=== PATIENT | female | born 1990 | race African-American/Black ===

== ENCOUNTER 2017-05-28 15:57 | Emergency (ER) | payer MEDICAID, SELFPAY ==
[~2017-05-28] VITALS: Ht 170.2 cm; Wt 72.8 kg
[2017-05-28] MEDS ORDERED: SODIUM CHLORIDE 0.9% 1,000 ML IV ONE (16:16)
[2017-05-28] MEDS ORDERED: SODIUM CHLORIDE 0.9% 1,000ML IVBOLUS ONE (16:30)
[2017-05-28 16:35] LABS: HEMOGLOBIN 15.3 g/dL (11.7-16.4); WHITE BLOOD COUNT 11.4 x10^3/uL (3.4-10)
[2017-05-28 16:44] LABS: BLOOD UREA NITROGEN 14 mg/dL (7-18)
[2017-05-28] MEDS ORDERED: BUSP5TAB2 PO (17:59)
[2017-05-28] MEDS ORDERED: DIVA-68 PO (17:59)
[2017-05-28] MEDS ORDERED: BUPR200T2 PO (17:59)
[2017-05-28] MEDS ORDERED: ONDANSETRON 2MG/ML, 2ML ONE (18:48)
[2017-05-28] MEDS ORDERED: MORPHINE SULFATE 4 MG/ML, 1ML ONE ×2 (18:48→21:08)
[2017-05-28] MEDS: MORPHINE SULFATE 4 MG/ML, 1ML IVPush PRN ×2 (18:55→21:09)
[2017-05-28] MEDS ORDERED: ONDANSETRON 2MG/ML, 2ML IVPush ONE (19:00)
[2017-05-28] MEDS ORDERED: DIPHENHYDRAMINE 50 MG/ML, 1ML ONE (19:15)
[2017-05-28] MEDS ORDERED: OMNIPAQUE 350 MG/ML, 100ML BOTTLE ONE (19:17)
[2017-05-28] MEDS ORDERED: DIPHENHYDRAMINE 50 MG/ML, 1ML IVPush ONE (19:30)
[2017-05-28] MEDS ORDERED: KETOROLAC 30 MG/1 ML ONE (19:54)
[2017-05-28] MEDS ORDERED: KETOROLAC 30 MG/1 ML IVPush ONE (20:00)
[2017-05-28 22:13] VITALS: BP 120/75
== END 2017-05-28 22:15 | disposition home or self-care (01) ==
LOC: ED 21:54
DX: K62.5 Hemorrhage of anus and rectum (principal); N83.201 Unspecified ovarian cyst, right side; F31.9 Bipolar disorder, unspecified; F20.9 Schizophrenia, unspecified
CPT/HCPCS: 36415; 74177; 76830; 80048; 81003; 82040; 84703; 85025; 96361; 96374; 96375; 96376; 99285; J1200; J1885; J2405; J7030; Q9967

== ENCOUNTER 2017-06-03 21:43 | Emergency (ER) | payer MEDICAID ==
[~2017-06-03] VITALS: Ht 170.2 cm; Wt 72.5 kg
[~2017-06-03 21:43] MED LIST: BUPR200T2 PO; BUSP5TAB2 PO; DIVA-68 PO
[2017-06-03] MEDS ORDERED: ONDANSETRON 2MG/ML, 2ML ONE (23:00)
[2017-06-03] MEDS ORDERED: SODIUM CHLORIDE 0.9% 1,000ML IVBOLUS ONE (23:00)
[2017-06-03] MEDS ORDERED: SODIUM CHLORIDE FLUSH 10ML SYR IVF ONE (23:00)
[2017-06-03] MEDS ORDERED: ONDANSETRON 2MG/ML, 2ML IVPush ONE ×2 (23:00→23:30)
[2017-06-03 23:18] LABS: HEMATOCRIT 41.8 % (34.6-47.8); WHITE BLOOD COUNT 8.6 x10^3/uL (3.4-10)
[2017-06-03] MEDS ORDERED: MORPHINE SULFATE 4 MG/ML, 1ML ONE (23:19)
[2017-06-03] MEDS: MORPHINE SULFATE 4 MG/ML, 1ML IVPush PRN (23:21)
[2017-06-03 23:27] LABS: BLOOD UREA NITROGEN 24 mg/dL (7-18)
[2017-06-03 23:31] LABS: ASPARTATE AMINO TRANSFERASE 8 U/L (15-37)
[2017-06-04] MEDS ORDERED: MORPHINE SULFATE 4 MG/ML, 1ML ONE (00:05)
[2017-06-04] MEDS: MORPHINE SULFATE 4 MG/ML, 1ML IVPush PRN (00:07)
[2017-06-04 00:10] VITALS: BP 116/74
== END 2017-06-04 00:17 | disposition home or self-care (01) ==
LOC: ED 22:30
DX: N83.201 Unspecified ovarian cyst, right side (principal)
CPT/HCPCS: 36415; 80053; 83690; 85025; 85610; 85730; 96361; 96374; 96375; 96376; 99284; J2405; J7030

== ENCOUNTER 2018-02-03 21:39 | Emergency (ER) | payer MEDICAID ==
[~2018-02-03] VITALS: Ht 170.2 cm; Wt 79.5 kg
[~2018-02-03 21:39] MED LIST changes: +ARIP2TAB2 PO; +OXYC-302 PO; +[UNRECOGNIZED DRUG - OTHER] PO
[2018-02-03 21:50] VITALS: BP 103/72
[2018-02-03 23:07] LABS: BASOPHILS # (AUTO) 0.04 x10^3/uL (0-0.1); BASOPHILS % (AUTO) 0 % (0-1); EOSINOPHILS # (AUTO) 0.33 x10^3/uL (0-0.4); EOSINOPHILS % (AUTO) 3 % (1-7); LYMPHOCYTES # (AUTO) 3.67 x10^3/uL (1-3.4); LYMPHOCYTES % (AUTO) 37 % (22-44); MD NO; MEAN CORPUSCULAR HEMOGLOBIN 30.8 pg (27.0-34.8); MEAN CORPUSCULAR HGB CONC 33.1 g/dL (32.4-35.8); MEAN CORPUSCULAR VOLUME 93.2 fL (80-100); MEAN PLATELET VOLUME 9.4 fL (7.4-10.4); MONOCYTES # (AUTO) 1.02 x10^3/uL (0.2-0.8); MONOCYTES % (AUTO) 10 % (2-9); NEUTROPHILS # (AUTO) 4.79 x10^3/uL (1.8-6.8); NEUTROPHILS % (AUTO) 49 % (42-75); PLATELET COUNT 175 x10^3/uL (130-400); RED BLOOD COUNT 4.46 x10^6/uL (3.82-5.3); RED CELL DISTRIBUTION WIDTH 13.7 % (9.6-15.2)
[2018-02-03 23:17] LABS: HCG UR SG 1.025 (1.003-1.030); MICROSCOPIC NOT IND
[2018-02-03 23:17] LABS: ALANINE AMINOTRANSFERASE 32 U/L (12-78); ALBUMIN 3.4 g/dL (3.4-5.0); ANION GAP 5 mmol/L (5-15); CALCIUM 8.5 mg/dL (8.5-10.1); CHLORIDE 109 mmol/L (98-107); CREATININE 1.07 mg/dL (0.55-1.02)
[2018-02-03 23:22] LABS: ALKALINE PHOSPHATASE 44 U/L (45-117); BILIRUBIN,TOTAL 0.3 mg/dL (0.2-1.0); TOTAL PROTEIN 6.7 g/dL (6.4-8.2)
[2018-02-03 23:28] LABS: CULTURE INDICATED? NO
== END 2018-02-04 00:18 | disposition home or self-care (01) ==
LOC: ED 23:59
DX: R10.32 Left lower quadrant pain (principal); R10.2 Pelvic and perineal pain; G89.29 Other chronic pain; F17.200 Nicotine dependence, unspecified, uncomplicated; Z98.890 Other specified postprocedural states
CPT/HCPCS: 36415; 76830; 80053; 81003; 81025; 83690; 84703; 85025; 99285

== ENCOUNTER 2018-04-13 18:19 | Emergency (ER) | payer MEDICAID ==
[~2018-04-13] VITALS: Ht 170.2 cm; Wt 76.2 kg
[2018-04-13 18:22] VITALS: BP 118/82
== END 2018-04-13 20:03 | disposition home or self-care (01) ==
LOC: ED 19:45
DX: S83.92XA Sprain of unspecified site of left knee, initial encounter (principal); L03.116 Cellulitis of left lower limb; F17.200 Nicotine dependence, unspecified, uncomplicated; W01.198A Fall on same level from slipping, tripping and stumbling with subsequent striking against other object, initial encounter; Y93.89 Activity, other specified; Y92.009 Unspecified place in unspecified non-institutional (private) residence as the place of occurrence of the external cause; Y99.8 Other external cause status
CPT/HCPCS: 29505; 99284

== ENCOUNTER 2019-12-21 22:56 | Emergency (ER) | payer MEDICAID, OTHER ==
[~2019-12-21] VITALS: Ht 170.2 cm; Wt 79.0 kg
[~2019-12-21 22:56] MED LIST changes: +DIVA-61 PO; -DIVA-68 PO
[2019-12-21] MEDS ORDERED: ACETAMINOPHEN 325 MG TABLET PO ONE (23:30)
[2019-12-21] MEDS ORDERED: LORazepam 2 MG/ML, 1ML IVPush ONE (23:30)
[2019-12-21] MEDS ORDERED: ACETAMINOPHEN 500 MG TABLET ONE (23:41)
[2019-12-21] MEDS ORDERED: LORazepam 2 MG/ML, 1ML ONE (23:42)
[2019-12-21 23:50] LABS: BASOPHILS # (AUTO) 0.04 x10^3/uL (0-0.1); BASOPHILS % (AUTO) 1 % (0-1); EOSINOPHILS # (AUTO) 0.34 x10^3/uL (0-0.4); EOSINOPHILS % (AUTO) 4 % (1-7); LYMPHOCYTES # (AUTO) 3.38 x10^3/uL (1-3.4); LYMPHOCYTES % (AUTO) 40 % (22-44); MD NO; MEAN CORPUSCULAR HEMOGLOBIN 30.7 pg (27.0-34.8); MEAN CORPUSCULAR HGB CONC 33.7 g/dL (32.4-35.8); MEAN CORPUSCULAR VOLUME 90.9 fL (80-100); MEAN PLATELET VOLUME 8.9 fL (7.4-10.4); MONOCYTES # (AUTO) 0.88 x10^3/uL (0.2-0.8); MONOCYTES % (AUTO) 10 % (2-9); NEUTROPHILS # (AUTO) 3.86 x10^3/uL (1.8-6.8); NEUTROPHILS % (AUTO) 45 % (42-75); PLATELET COUNT 227 x10^3/uL (130-400); RED BLOOD COUNT 4.55 x10^6/uL (3.82-5.3)
[2019-12-22] LABS: ALBUMIN 3.7 g/dL (3.4-5.0); ANION GAP 5 mmol/L (5-15); CALCIUM 9.1 mg/dL (8.5-10.1); CHLORIDE 110 mmol/L (98-107); CREATININE 0.82 mg/dL (0.55-1.02)
[2019-12-22 00:04] LABS: TROPONIN I < 0.015 ng/mL (0.000-0.045)
--- NOTE | 2019-12-22 00:51 | NUR ---
pt here with many different complaints that include anxiety, cheast heaviness, abd pain, shooting pains in her legs, dehydration. pt anxious and asking for iv fluids for hydration. pt requesting an ultrasound to see her ovian cyst. pt educated on our processes here and pt encouraged to drink po fluids for hydration instead of IVF. pt provided multiple glasses of water. pt medicated for anxiety per med orders.
[2019-12-22 01:25] VITALS: BP 95/51
== END 2019-12-22 01:29 | disposition home or self-care (01) ==
LOC: ED 23:44
DX: R07.89 Other chest pain (principal); R20.2 Paresthesia of skin; F17.200 Nicotine dependence, unspecified, uncomplicated
CPT/HCPCS: 36415; 71045; 80048; 82040; 84484; 84703; 85025; 85379; 93005; 96374; 99285; J2060